=== PATIENT | female | born 1995 | race African-American/Black ===

== ENCOUNTER 2020-04-24 13:55 | Emergency (ER) | payer MEDICAID ==
[~2020-04-24] VITALS: Ht 160 cm; Wt 81.8 kg
--- NOTE | 2020-04-24 14:17 | ED.ADGEN ---
Past Medical History Past Medical History: No Pertinent History Past Surgical History: No Surgical History Smoking Status: Never Smoker Alcohol Use: None General Adult EDM: Chief Complaint: NEAR SYNCOPE HPI: HPI: Patient is a 24-year-old female who arrives via EMS after experiencing a near syncopal episode. Patient reports she was donating plasma when the attending staff was having problems with her line. Patient reports after several attempts at manipulating her line while donating, the patient became lightheaded. Patient states she almost passed out during this time and was informed that her blood pressure was decreased during this time as well. Despite this the patient denies any chest pain. She further denies any previous illness and states she has donated plasma multiple times without difficulty. She states she is feeling better now. She is awake, alert and nontoxic-appearing. Review of Systems: Review of Systems: Constitutional: Denies fever or chills. [] Eyes: Denies change in visual acuity. [] HENT: Denies nasal congestion or sore throat. [] Respiratory: Denies cough or shortness of breath. [] Cardiovascular: Reports low blood pressure. Denies chest pain or edema. [] GI: Denies abdominal pain, nausea, vomiting, bloody stools or diarrhea. [] : Denies dysuria. [] Musculoskeletal: Denies back pain or joint pain. [] Integument: Denies rash. [] Neurologic: Reports feeling lightheaded. Denies headache, focal weakness or sensory changes. [] Endocrine: Denies polyuria or polydipsia. [] Lymphatic: Denies swollen glands. [] Psychiatric: Denies depression or anxiety. [] Family History: Family History: Noncontributory Allergies: Allergies: Allergies Coded Allergies Type Severity Reaction Last Updated Verified No Known Drug Allergies 04/24/20 No Physical Exam: PE: Constitutional: Well developed, well nourished, no acute distress, non-toxic appearance. [] HENT: Normocephalic, atraumatic, bilateral external ears normal, oropharynx moist, no oral exudates, nose normal. [] Eyes: PERRLA, EOMI, conjunctiva normal, no discharge. [] Neck: Normal range of motion, no tenderness, supple, no stridor. [] Cardiovascular:Heart rate regular rhythm, no murmur [] Lungs & Thorax: Bilateral breath sounds clear to auscultation [] Abdomen: Bowel sounds normal, soft, no tenderness, no masses, no pulsatile masses. [] Skin: Warm, dry, no erythema, no rash. [] Back: No tenderness, no CVA tenderness. [] Extremities: No tenderness, no cyanosis, no clubbing, ROM intact, no edema. [] Neurologic: Alert and oriented X 3, normal motor function, normal sensory function, no focal deficits noted. [] Psychologic: Affect normal, judgement normal, mood normal. [] Current Patient Data: Labs: Laboratory Tests Test 04/24/20 14:18 04/24/20 14:31 Glucose (Fingerstick) 84 mg/dL (70-99) POC Urine HCG, Qualitative Hcg negative (Negative) Vital Signs: Vital Signs Date Time Temp Pulse Resp B/P (MAP) Pulse Ox O2 Delivery O2 Flow Rate FiO2 04/24/20 14:02 98.2 75 18 93/60 (71) 97 Room Air 98.2 EKG: EKG: EKG was obtained at 1421 hrs. and revealed a normal sinus rhythm with a ventricular rate of 64 bpm. There are no ST/T wave changes to denote ischemia. This is an otherwise normal-appearing EKG. [] Heart Score: Risk Factors: Risk Factors: DM, Current or recent (<one month) smoker, HTN, HLP, family history of CAD, obesity. Risk Scores: Score 0 - 3: 2.5% MACE over next 6 weeks - Discharge Home Score 4 - 6: 20.3% MACE over next 6 weeks - Admit for Clinical Observation Score 7 - 10: 72.7% MACE over next 6 weeks - Early Invasive Strategies Radiology/Procedures: Radiology/Procedures: [] Course & Med Decision Making: Course & Med Decision Making Pertinent Labs and Imaging studies reviewed. (See chart for details) [] Dragon Disclaimer: Dragon Disclaimer: This electronic medical record was generated, in whole or in part, using a voice recognition dictation system. Departure Departure Impression: Primary Impression: Vasovagal near syncope Disposition: 01 DC HOME SELF CARE/HOMELESS Condition: IMPROVED Patient Instructions: Near-Syncope KHUSHBU BACON DO Apr 24, 2020 14:16
[2020-04-24 15:00] VITALS: BP 109/64
== END 2020-04-24 15:21 | disposition home or self-care (01) ==
LOC: ER 13:55
DX: R55 Syncope and collapse (principal)
CPT/HCPCS: 81025; 82962; 93005; 99283